=== PATIENT | male | born 1985 | race Caucasian/White ===

== ENCOUNTER 2018-05-29 20:35 | Emergency (ER) | payer OTHER, SELFPAY ==
[2018-05-29 20:36] VITALS: BP 172/87; PULSE 89; RESP 20; TEMP 36.7; O2SAT 96; BMI 39.6
--- NOTE | 2018-05-29 20:49 | ED.VISSUMM ---
- ER Visit Summary Date of Service: 05/29/18 Chief Complaint: Cough History of Present Illness: The patient is a 32 M presents with a cough congestion for the past few hours. His girlfriend had similar symptoms for the past week. No fever or chills. He has upper respiratory congestion and rhinorrhea. He has no shortness of breath. He has no rash abdominal pain neck pain or stiffness. No headache or vision changes. No recent travel history. Physical Examination: Patient has normal vitals he does not appear toxic. He has upper airway congestion swollen nasal turbinates he has bilateral TM erythema, TMs are not bulging. He has postnasal drip. He has mostly clear lungs bilaterally. His cough is slightly productive. He has a soft abdomen Emergency Department Course and Treatment: Patient is afebrile, he does not have muscle aches, it is unlikely that this is influenza. He likely has a viral illness. There are no indications for antibiotics. He has bronchitis I will give him an inhaler I will also give decongestants for home. Discharge stable condition Impression: [Upper respiratory infection] This note was generated with [employer] dictation software. It may contain incorrect words, spelling, and punctuation that were not noted in review of the chart prior to signing ED Disposition - Plan for ED Patient: Disposition: Home or Assisted Living Instructions: ED Upper Resp Infec No Abx Tx Prescriptions: Albuterol IH (ProAir) [Proair Hfa (SP)Vent Pts] 1 puff INHALATION Q4H PRN PRN #1 inhaler PRN Reason: Cough Guaifenesin [Mucinex] 1,200 mg PO BID #20 tab.er.12h Referrals: Rachid Narayan DO [Primary Care Provider] - 3-5 Days
== END 2018-05-29 21:03 | disposition home or self-care (01) ==
PROVIDERS: Emergency Provider Emergency Medicine; Family Provider Student in an Organized Health Care Education/Training Program; PCP Student in an Organized Health Care Education/Training Program
DX: J06.9 Acute upper respiratory infection, unspecified (principal); K21.9 Gastro-esophageal reflux disease without esophagitis; G47.33 Obstructive sleep apnea (adult) (pediatric); Z72.0 Tobacco use
CPT/HCPCS: 99282

== ENCOUNTER 2018-10-10 13:04 | Emergency (ER) | payer OTHER, SELFPAY ==
[2018-10-10 13:04] VITALS: BP 157/80; PULSE 99; RESP 18; TEMP 37.8; O2SAT 99; BMI 38.4
--- NOTE | 2018-10-10 13:36 | CT_ITS ---
STUDY: CT SOFT TISSUE NECK WITH CONTRAST REASON FOR EXAM: Male, 33 years old. Sore throat. Fever. RADIATION DOSAGE (If Supplied By Facility): CTDIvol = ( 21.37 ) mGy, DLP = ( 651.06 ) mGycm TECHNIQUE: The patient was scanned in a multi-detector CT scanner. High resolution transaxial imaging was performed following intravenous administration of 75 IV Isovue 300. Sagittal and coronal images were reconstructed. Individualized dose optimization techniques were used for this CT. COMPARISON: None. FINDINGS: Normal bilateral parotid glands. Normal bilateral ribber spaces. Normal bilateral parapharyngeal spaces. Normal bilateral carotid spaces. Normal bilateral sublingual and submandibular glands and spaces. Normal visualized nasopharynx. Normal retropharyngeal space. Normal perivertebral space. There is an inhomogeneous enlargement and enhancement of the faucil tonsils bilaterally. There is narrowing of the hypopharynx due to hypertrophy of the tonsils. This is worse on the right side. I suspect tiny abscesses in both tonsils. The visualized tongue, tongue base and oropharynx are normal. There are minimally enlarged lymph nodes of the neck, with preservation of normal driss architecture, consistent with a reactive lymph hyperplasia. There is no demonstrated solid or cystic mass lesion. There is no abnormal contrast enhancement. Normal epiglottis, bilateral vallecula and hypopharynx. The pre-epiglottic and paraglottic adipose spaces are normal. Normal visualized bilateral piriform sinuses, aryepiglottic folds, vocal cords, and arytenoid-cricoid articulations. Normal subglottic trachea. Normal bilateral lobes of the thyroid gland. Normal visualized pulmonary apices. Normal visualized paranasal sinuses. Normal visualized cervical spine. CT/Soft Tissue Neck WITH Contrast IMPRESSION: Enlargement of the bilateral fossae of tonsils with narrowing of the hypopharynx. This is worse on the right side. I suspect tiny abscesses bilaterally. Electronically Signed: Zak Amado, at 15:11 EDT , Service support ,
--- NOTE | 2018-10-10 13:37 | ED.DCSUM_ITS ---
- ER Visit Summary Date of Service: 10/10/18 Chief Complaint: Sore throat History of Present Illness: The patient is a 33 M who presents with a sore throat that has been getting worse over the past 5 days. Patient went to an urgent care today and had a rapid strep test which was negative. Patient was then referred to the emergency department for possible tonsillar abscess. Patient states his pain is stabbing and is worse with swallowing. Patient admits to a fever of 101.4. Patient states he has been taking ibuprofen which does help. Physical Examination: Vital signs are stable. Patient is afebrile. Patient is in no acute distress. Oral mucosa is pink and moist. Neck is supple. Trachea is midline. There is tender cervical adenopathy noted. Oropharynx was erythematous and edematous. There were no exudates noted. Heart was regular rate and rhythm. Lungs are clear and equal bilaterally. Abdomen is soft and nontender. Test Results: CBC showed leukocytosis of 15.7. Creatinine was slightly elevated 1.45. CT scan of the soft tissue neck showed enlargement of the tonsils bilaterally that is slightly worse on the right. Emergency Department Course and Treatment: Patient was given morphine and Unasyn here. Patient was given IV fluids. Case was discussed with Dr. Lopez. He recommended giving the patient Decadron and sending the patient home with Augmentin or clindamycin. He will follow-up with the patient in his office in 1 to 2 weeks. Patient was instructed on signs and symptoms which should prompt return to the emergency department. Patient understood and was agreeable with the plan. All questions were answered. Disposition: Discharge home Impression: Tonsillitis This note was generated with [employer] dictation software. It may contain incorrect words, spelling, and punctuation that were not noted in review of the chart prior to signing ED Disposition - Plan for ED Patient: Disposition: Home or Assisted Living Diagnosis: Tonsillitis Instructions: ED Tonsillitis Prescriptions: Amox/Clavulanate Tablet [Augmentin Tablet] 875 mg PO Q12H #20 tab Prescription Printed Referrals: Rachid Narayan DO [Primary Care Provider] - 1-2 Weeks Sunny Lopez MD [STAFF PHYSICIAN] - 1-2 Weeks
[2018-10-10] MEDS: Morphine 4 MG/ML Syringe IV (13:57)
[2018-10-10 14:08] LABS: Absolute Lymphocyte Count 1.79 X10^3/uL (0.83-4.51); Absolute Neutrophil Count 12.3 X10^3/uL (2.0-7.7); Basophil# 0.03 X10^3/uL; Basophil% 0.2 % (0-1); Eosinophil# 0.01 X10^3/uL; Eosinophils% 0.1 % (0-5); Hematocrit 41.8 % (40-54); Hemoglobin 14.4 g/dL (13.0-16.5); Lymphocyte # 1.79 X10^3/ul (4.0); Lymphocyte % 11.4 % (19-41); Mean Corp Hgb Conc 34.4 g/dL (32-36); Mean Corpuscular Hgb 32.1 pg (27.0-32.0); Mean Corpuscular Volume 93.1 fL (80-94); Mean Platelet Vol. 8.9 fl (6.2-12.0); Monocyte# 1.49 X10^3/uL; Monocyte% 9.5 % (0-10); NRBC Flagged by Analyzer 0 % (0-5); Neutrophil # 12.33 X10^3/uL (2.7-7.7); Neutrophil % 78.3 % (47-70); Platelet Count 185 K/mm3 (150-450); RBC Distribution Width CV 11.9 % (11.6-14.6); RBC Distribution Width SD 40.7 fl (35.1-43.9); Red Blood Count 4.49 M/mm3 (4.6-6.2); White Blood Count 15.7 K/mm3 (4.4-11.0)
[2018-10-10 14:17] LABS: Anion Gap 5 (5-15); BUN 11 mg/dL (7-18); BUN/Creat Ratio 7.6 RATIO (10-20); Calcium,Total 8.7 mg/dL (8.5-10.1); Chloride 104 mmol/L (98-107); Creatinine, Serum 1.45 mg/dL (0.70-1.30); EST Glomerular Filtration Rate 59 mL/min (>60); Est Glom Filt Rate - Afr Amer 72 mL/min (>60); Estimated Creatinine Clearance 71.78 ml/min; Glucose 99 mg/dL (74-106); Potassium 3.9 mmol/L (3.5-5.1); Sodium Level 135 mmol/L (136-145)
--- NOTE | 2018-10-10 14:34 | ED.RN ---
called pharmacy regarding atb, spoke with
[2018-10-10] MEDS: dexAMETHasone 10 MG/ML Vial IV (15:32)
[2018-10-10] MEDS: 0.9% Normal Saline 1,000 ML 1000 ML IV (15:32)
[2018-10-10 15:38] VITALS: BP 147/79; RESP 14; O2SAT 96
== END 2018-10-10 16:31 | disposition home or self-care (01) ==
PROVIDERS: Emergency Provider Emergency Medicine; Family Provider Student in an Organized Health Care Education/Training Program; PCP Student in an Organized Health Care Education/Training Program
DX: J03.90 Acute tonsillitis, unspecified (principal); K21.9 Gastro-esophageal reflux disease without esophagitis; E03.9 Hypothyroidism, unspecified; F17.210 Nicotine dependence, cigarettes, uncomplicated
CPT/HCPCS: 70491; 80048; 85025; 96361; 96365; 96375; 99284; Q9967; J0295

== ENCOUNTER 2021-11-21 07:36 | Emergency (ER) | payer OTHER, SELFPAY ==
[2021-11-21 07:37] VITALS: BP 163/83; PULSE 90; RESP 18; TEMP 36.1; O2SAT 100; BMI 44.3
--- NOTE | 2021-11-21 08:24 | ED.VIS.BACK ---
HPI History of Present Illness Chief Complaint: Back Informant: patient Onset/Context/Timing Onset: Yesterday Context: Sudden Onset Injury: bending Timing: Continuous Quality: Sharp and Burning Location: Lumbar Worsened by: improves with Nothing Relieved by: Nothing Associated Symptoms Associated Symptoms: Radiation to Right Leg and Abdominal Pain; Negative for Numbness, Tingling, Radiation to Left Leg, Fever, Dysuria, Unable to Ambulate, Unable to Transfer, Urinary Retention, Urinary Incontinence, Constipation or Fecal Incontinence Narrative Narrative: Patient presents with back pain that began yesterday. Patient states he was bending forward and felt a pop in his low back. Patient describes the pain as sharp and burning. Patient states it is across his lower back. Patient states it radiates around into his abdomen. Patient states it also radiates into his right thigh. Patient denies any paresthesias or weakness. Patient states nothing makes it better or worse. Patient denies any bowel or bladder changes. Patient denies any saddle anesthesia. [facility] Medical History (Updated 11/21/21 @ 08:[address] Douglas Wiggins DO) Depression GERD (gastroesophageal reflux disease) Hypothyroidism Home Medications levothyroxine 200 mcg tablet (Levoxyl) 125 mcg PO MOTUWETHFR 06/02/15 [History Last Taken Unknown] omeprazole 20 mg capsule,delayed release 20 mg PO DAILY 05/29/18 [History Last Taken Unknown] bupropion HCl 100 mg tablet 100 mg PO DAILY 11/21/21 [History Last Taken Unknown] cyclobenzaprine 10 mg tablet 10 mg PO QHS PRN PRN Muscle Spasm #10 TABLETS 11/21/21 [Rx Last Taken Unknown] levothyroxine 125 mcg tablet 187.5 mcg PO SUSA 11/21/21 [History Last Taken Unknown] naproxen 500 mg tablet 500 mg PO BID PRN #20 tabs 11/21/21 [Rx Last Taken Unknown] Allergy/AdvReac Type Severity Reaction Status Date / Time No Known Allergies Allergy Verified 10/10/18 13:06 Surgical History (Updated 11/21/21 @ 08:[address] Douglas Wiggins DO) Hx of appendectomy Social History Smoking Status: Never smoker ROS ROS ED Constitutional Constitutional ED: Denies chills or fever(s) Eyes Eyes: Denies blurry vision or change in vision ENT ENT ED: Denies rhinorrhea or sore throat Cardiovascular Cardiovascular: Denies chest pain or palpitations Respiratory/Chest Respiratory/Chest: Denies cough or dyspnea Gastrointestinal Gastrointestinal: Reports abdominal pain; Denies nausea or vomiting Genitourinary Genitourinary ED: Denies dysuria or hematuria Musculoskeletal Musculoskeletal: Reports back pain; Denies neck pain Integumentary Denies abscess or rash Neurologic Neurologic: Denies headache(s) or weakness Allergic/Immunologic Allergic/Immunologic ED: Denies mouth swelling or urticaria EXAM Physical Exam Const Vital Signs: 11/21/21 07:37 Temperature 97.0 F L Temperature Source Temporal Pulse Rate 90 Respiratory Rate 18 Blood Pressure 163/83 H Blood Pressure Mean 109 Pulse Ox 100 Oxygen Delivery Method Room Air Positive well nourished, well developed and obese General Appearance ED: well developed and NAD Nutritional Appearance: obese Neck supple Back/Spine Back/Spine Narrative: There is tenderness over the lower lumbar spine and paraspinal muscles, worse on the right. There is no bony crepitance or step-off. Range of motion was limited in all motions of the lumbar spine secondary to pain. Strength is 5/5 bilaterally in the lower extremities. There are no sensory deficits noted. Deep tendon reflexes are 2/4 bilaterally. Straight leg raises were negative bilaterally. Lumbar Spine / Lower Back: ROM limited and straight leg raise negative bilaterally Extremity normal to inspection and no clubbing, cyanosis or edema Neuro oriented x3 and no sensory deficits noted Sensorium / Orientation: alert Motor Exam: strength 5/5 throughout Deep Tendon Reflexes: Rt Patellar (L4): 2+, Lt Patellar (L4): 2+, Rt Ankle (S1): 2+ and Lt Ankle (S1): 2+ Deep Tendon Reflexes Back: Rt Patellar (L4): 2+, Lt Patellar (L4): 2+, Rt Ankle (S1): 2+ and Lt Ankle (S1): 2+ Psych mental status grossly normal MDM MDM MDM Narrative Medical decision making narrative: Patient was advised that this is most likely a muscular strain. Patient was given a dose of morphine and Norflex here. Patient was given prescriptions for a short course of Naprosyn and Flexeril. Patient was instructed use ice to the area. Patient was instructed to follow-up with his primary care physician in 5 to 7 days. Patient understood and was agreeable with the plan. All questions were answered. Discharge Plan Triage Chief Complaint: Back ED Provider: Douglas Wiggins Dx/Rx/DC Orders Clinical Impression: Acute lumbosacral myofascial strain, Morbid obesity with BMI of 40.0-44.9, adult Instructions: ED Back Pain (Acute or Chronic), ED Back Sprain/Strain Prescriptions: New cyclobenzaprine [cyclobenzaprine] 10 mg tablet 10 mg PO QHS PRN PRN (Reason: Muscle Spasm) Qty: 10 0RF naproxen 500 mg tablet 500 mg PO BID PRN Qty: 20 0RF No Action levothyroxine [Levoxyl] 200 MCG tablet 125 mcg PO MOTUWETHFR omeprazole 20 MG capsule,delayed release(DR/EC) 20 mg PO DAILY bupropion HCl 100 mg tablet 100 mg PO DAILY levothyroxine 125 mcg tablet 187.5 mcg PO SUSA Label Comments: take 1 tablet by mouth once daily 5 DAYS PER WEEK -- AND 1 AND 1/... (REFER TO PRESCRIPTION NOTES). Stand Alone Forms: Work Status Form Primary Care Provider: Rachid Narayan Referrals: Rachid Narayan, [Primary Care Provider] - 5-7 Days Disposition Disposition: Home, Self Care
[2021-11-21] MEDS: Morphine 4 MG/ML Syringe IM (08:40)
[2021-11-21] MEDS: Orphenadrine 60 MG/2 ML Ampul IM (08:40)
[2021-11-21 09:04] VITALS: PULSE 94; RESP 17; O2SAT 99
== END 2021-11-21 09:05 | disposition home or self-care (01) ==
PROVIDERS: Emergency Provider Emergency Medicine; PCP Student in an Organized Health Care Education/Training Program; Visit Provider Emergency Medicine
DX: S39.012A Strain of muscle, fascia and tendon of lower back, initial encounter (principal); E66.01 Morbid (severe) obesity due to excess calories; E03.9 Hypothyroidism, unspecified; K21.9 Gastro-esophageal reflux disease without esophagitis; F32.A Depression, unspecified; X50.1XXA Overexertion from prolonged static or awkward postures, initial encounter
CPT/HCPCS: 96372; 99282